=== PATIENT | female | born 1965 | race Caucasian/White ===

== ENCOUNTER 2024-03-28 06:04 | Emergency (ER) | payer MEDICARE, OTHER, SELFPAY ==
[2024-03-28 06:13] VITALS: BP 122/77
[2024-03-28 06:21] VITALS: BMI 26.5
--- NOTE | 2024-03-28 07:29 | ED.GENMED ---
History of Present Illness
General
Chief Complaint: Musculo-Skeletal Complaint
Source: patient
Exam Limitations: none
Time Seen by Provider: 03/28/24 07:01
Nursing documentation reviewed up to this point in time: agreed with
History of Present Illness
History of Present Illness:
58-year-old female presenting to the emergency department today with concerns of right-sided ankle discomfort. Claims that she kicked the chair in the left ankle stuck in the chair last night difficulty walking this morning as well as swelling and
discomfort. Denies additional injuries. No numbness or weakness.
Past History
Past History
ED Past Medical History: Other (Bipolar)
ED Past Surgical History: Other (noncontributory)
Social History
Tobacco: Smoker
Alcohol: None
Drug: None
Personal: Other (Noncontributory)
Living: with family
Employment: Not employed
Family History
Family History: Other (Noncontributory)
Review of Systems
Review of Systems
Allergies reviewed?: Yes
All Other Systems: ROS reviewed and negative except as documented in HPI and ROS
Phy Exam
Physical Exam
Physical Exam:
GENERAL: Alert , in no apparent distress
EYE: pupils equal and reactive
NECK: Supple, no significant adenopathy.
ENT: o/p clr, mmm.
CARDIAC: Regular rate and rhythm .
LUNGS: Clear breath sounds bilaterally, no acute respiratory distress, no wheezes/rales/rhonchi
ABDOMEN: Soft, without focal tenderness, no r/g, no cvat
NEUROLOGICAL: Alert and oriented, no focal neuro deficits
SKIN: Warm and dry, skin intact.
MUSCULOSKELETAL: Mild swelling and tenderness palpation to the right ankle mainly to the lateral and medial malleolus mainly to the area anterior to both. No tenderness throughout the foot midfoot forefoot or tib-fib., well perfused.
PSYCH: Normal and appropriate interaction.
Course
Orders/Labs/Results
Orders:
Orders
03/28/24 06:10
Ankle, Right 3 view CR [CR Ankle - Right Min 3 Views *] Urgent
Comment:
Reason For Exam: injury and pain
03/28/24 07:27
boot [Ortho Boot Right- Treatment] ONCE
Short or tall?: Tall
Vital Signs
Initial and Last Documented VS:
Initial Vital Signs
Temp Pulse Resp BP Pulse Ox
98.5 F 79 16 122/77 100
03/28/24 06:13 03/28/24 06:13 03/28/24 06:13 03/28/24 06:13 03/28/24 06:13
Last Documented Vital Signs
Temp Pulse Resp BP Pulse Ox
98.5 F 79 16 122/77 100
03/28/24 06:13 03/28/24 06:13 03/28/24 06:13 03/28/24 06:13 03/28/24 06:13
MDM/Problems Addressed
MDM/Problems Addressed:
58-year-old female presenting to the emergency department today with concerns of right-sided ankle discomfort after twisting and hitting her ankle in a chair yesterday. Difficulty walking today. Neuro vastly intact tenderness mainly to the
anterior aspect of the lateral malleolus. X-ray without evidence of fracture patient with likely sprain plan for symptomatic treatment return precautions given.
*Critical Care Note
Total Time (30-74mins, 75-104mins- exclusive of procedures): Not Applicable
ED Attending Note
-
Portions of this chart may have been created with voice recognition software.� Occasional wrong word or��sound alike� substitutions may have occurred due to the inherent limitations of voice recognition software.
Discharge Plan
Departure
Patient Disposition: Home (Routine Discharge)
Date of Disposition: 03/28/24
Time of Disposition: 07:39
Patient with high blood pressure during this ER visit?: No
Condition: Good
Covid-19: Not Applicable
Discharge Problem:
Ankle sprain
Instructions: Ankle Sprain ED
Prescriptions:
No Action
Ativan
1 tab PO TID
Patient Comments:
'take 1 tab three times a day'
carbamazepine [Tegretol] 200 MG tablet
400 mg PO DAILY
fluticasone propionate 1 SPRAY spray,suspension
2 spray intranasal DAILY
Celexa
1 tab PO DAILY
diphenhydramine-acetaminophen 1 EACH tablet
2 - 3 tab PO HS PRN (Reason: SLEEP)
doxycycline hyclate 100 MG capsule
100 mg PO Q12 Qty: 20 0RF
ytnrhrcl-xtuurkiceIp-msumlmouW 15 GM ointment
15 gm TP BID Qty: 0 0RF
clindamycin HCl 300 MG capsule
300 mg PO TID Qty: 30 0RF
phenazopyridine 100 MG tablet
100 mg PO TIDPRN PRN (Reason: pain) Qty: 10 0RF
Referrals:
Jon Boles MD [Active] - Follow up in 5-7 days
Activity Restrictions/Additional Instructions:
You came to the emergency department today for concerns of an ankle sprain. Please follow-up closely with Ortho as needed and increase weightbearing as tolerated. Return to the emergency department for any worsening, new or concerning symptoms.
Interventions
Interventions:
*Risk Screen - Suicide Last Done: 03/28/24 06:20
*General Assessment Last Done: 03/28/24 06:18
*Neglect/Abuse Screening Last Done: 03/28/24 06:22
ED- Fall Risk Assessment Last Done: 03/28/24 06:17
*ED COVID-19 Vaccine History Last Done: 03/28/24 06:17
ED-Musculoskeletal Assessment Last Done: 03/28/24 06:15
Discharge Date and Time
Print Language: [place]
== END 2024-03-28 07:57 | disposition home or self-care (01) ==
LOC: EMR 06:04
PROVIDERS: EMERGENCY PHYSICIAN Emergency Medicine; FAMILY PHYSICIAN Family Medicine
DX: S93.401A Sprain of unspecified ligament of right ankle, initial encounter (principal); W22.09XA Striking against other stationary object, initial encounter; F17.200 Nicotine dependence, unspecified, uncomplicated
CPT/HCPCS: 99283; 73610

== ENCOUNTER 2024-05-25 18:23 | Emergency (ER) | payer OTHER, SELFPAY ==
[2024-05-25 18:35] VITALS: BP 157/88
[2024-05-25 18:55] LABS: % Basophils 0.4 % (0-2); % Eosinophils 1.4 % (0-6); % Lymphocytes 43.2 % (20.5-51.1); % Monocytes 8.6 % (1.7-9.3); % Neutrophils 46.4 % (42.2-75.2); Absolute Eosinophils 0.1 10^3/uL (0-0.7); Absolute Lymphocytes 2.2 10^3/uL (1.2-3.4); Absolute Monocytes 0.4 10^3/uL (0.1-0.6); Absolute Neutrophils 2.4 10^3/uL (1.4-6.5); Hematocrit 38.8 % (37.0-47.0); Hemoglobin 12.9 g/dL (12.0-16.0); Mean Corp Hgb Conc. 33.2 g/dL (33.0-37.0); Mean Corpuscular Hgb 30.7 pg (27.0-31.0); Mean Corpuscular Volume 92.4 fL (81.0-99.0); Mean Platelet Volume 8.8 fL (7.4-10.4); Nucleated Red Blood Cells % 0 %; Platelet Count 287 10^3/uL (130-400); Red Cell Dist. Width 12.1 % (11.5-14.5); White Blood Cell Count 5.1 10^3/uL (4.8-10.8)
[2024-05-25 18:57] LABS: Urine Albumin Negative (Neg - Trace); Urine Bilirubin Negative (Negative); Urine Character Clear (Clear); Urine Color Yellow; Urine Glucose Negative (Negative); Urine Ketone Negative (Negative); Urine Leukocyte Negative (Negative); Urine Nitrite Negative (Negative); Urine Occult Blood Negative (Negative); Urine Urobilinogen Negative (Neg - 1+)
[2024-05-25 19:10] LABS: ALT (SGPT) 29 U/L (0-35); AST (SGOT) 35 U/L (14-36); Albumin 4.7 g/dl (3.5-5.0); Alkaline Phosphatase 116 U/L (38-126); Blood Urea Nitrogen 25 mg/dl (7-17); Calcium 10.1 mg/dl (8.4-10.2); Carbon Dioxide 30 mmol/L (22-30); Chloride 102 mmol/L (98-107); Glucose 95 mg/dl (70-99); Potassium 4.2 mmol/L (3.5-5.1); Sodium 139 mmol/L (135-145); Total Bilirubin 0.1 mg/dl (0.2-1.3); Total Protein 7.5 g/dl (6.3-8.2); eGFR > 60.00
[2024-05-25 21:20] VITALS: BP 131/89; BMI 27.4
--- NOTE | 2024-05-25 22:23 | ED.GENMED ---
History of Present Illness
General
Chief Complaint: Flank Pain
Source: patient
Exam Limitations: none
Time Seen by Provider: 05/25/24 21:45
History of Present Illness
History of Present Illness:
This is a 58 year old female that comes in with c/o feeling like she has a UTI and right back pain. States that 3 week ago she though she had a UTI and treated herself with AZO. States that know she has right back pain and is concerned that she has
a kidney infection. States that she thought mabybe the urinary tract infection moved up. Denies any fever, chills, chest pain, SOB, abd pain, nausea, vomiting, diarrhea, headache, dizziness, urinary burning.
Past History
Past History
ED Past Medical History: HTN, Psychiatric (Bipolar, OCD) and Other (Headache, Dizzy, )
ED Past Surgical History: Orthopedic (Right and left knee replacement, Left shoulder surgery, ), Urological (Piece of right kidney removed. ) and Other (noncontributory)
Social History
Tobacco: Former smoker
Alcohol: Occasional
Drug: None
Personal: Single (Noncontributory)
Living: with family
Employment: Not employed
Family History
Family History: Other (Noncontributory)
Review of Systems
Review of Systems
All Other Systems: ROS reviewed and negative except as documented in HPI and ROS
Constitutional: Reports no symptoms; Denies fever or chills
EENT: Reports no symptoms
Respiratory: Reports no symptoms; Denies cough or trouble breathing
Cardiac: Reports no symptoms; Denies chest pain
ABD/GI: Reports no symptoms; Denies abdominal pain, nausea, vomiting or diarrhea
: Reports no symptoms; Denies dysuria, frequency or urgency
Musculoskeletal: Reports back pain (Right low back pain)
Skin: Reports no symptoms
Neurological: Reports no symptoms; Denies dizzy or headache
Psychiatric: Reports no symptoms
Phy Exam
General Physical Exam
General Presentation: no apparent distress
General age: appears stated age
General Skin: warm and dry
General Habitus: other (Appears older then stated age)
General Mental: alert
General Hydration: appears well hydrated
ENT Exam
ENT Exam: TM's normal, pharynx normal and neck supple
Eye Exam
Eye Exam: EOMI
Cardiovascular Exam
Cardiovascular Exam: regular rate/rhythm, no edema, no murmur and normal peripheral pulses
Pulmonary Exam
Pulmonary Exam: lungs clear, no respiratory distress, no rales, chest non tender, no crackles, no rhonchi, no wheezing and no cough
Gastrointestinal Exam
Gastrointestinal Exam: normal bowel sounds, non tender, soft, no organomegaly, no pulsatile mass, non distended and no cva tenderness
Musculoskeletal Exam
Musculoskeletal Exam: full ROM and no edema
Skin Exam
Skin Exam: normal color, warm/dry, no rash and no petechia
Psychiatric Exam
Psychiatric Exam: normal mood/affect
Course
Orders/Labs/Results
Orders:
Orders
05/25/24 18:48
CMP [Comprehensive Metabolic Panel] Urgent
Complete Blood Count/With Diff Urgent
Urinalysis Reflex To Culture Urgent
Date Specimen was Collected: 05/25/24
Time Specimen was Collected: 18:27
05/25/24 22:23
CT Abd/pel Without Iv Or Oral Urgent
Comment:
Reason For Exam: Right back pain/flank pain
Abnormal Lab Results
05/25/24
18:48
BUN 25 H mg/dl
(7-17)
Total Bilirubin 0.1 L mg/dl
(0.2-1.3)
05/25/24 18:48
05/25/24 18:48
Dehydration. Total nj slightly low. Urine negative for blood or infection
Vital Signs
Initial and Last Documented VS:
Initial Vital Signs
Temp Pulse Resp BP Pulse Ox
98.3 F 80 20 157/88 100
05/25/24 18:35 05/25/24 18:35 05/25/24 18:35 05/25/24 18:35 05/25/24 18:35
Last Documented Vital Signs
Temp Pulse Resp BP Pulse Ox
98.3 F 84 15 131/89 99
05/25/24 18:35 05/25/24 21:20 05/25/24 21:20 05/25/24 21:20 05/25/24 21:20
MDM/Problems Addressed
Differential Diagnosis Includes:
Renal calculus, Kidney Cancer
MDM/Problems Addressed:
This is a 58 year old female that come sin with c/o right side back pain. States that she has a UTI 3 weeks ago and took AZO. States that her urine still smelled and she thought that it moved up into her kidney as she has right back pain.
Will check labs, Urine and get CT scan
Back into see patient. Explained that there are no renal calculus but some constipation. There is degenerative change in the lumbar spine. Patient can use TYlenol as needed for pain. Follow up with the family doctor. return with any concerns.
Chronic conditions affecting care:
NA
Acute Exacerbation and/or Progression of Chronic Illness:
NA
*Radiology
Radiology exam reviewed: radiology read reviewed (CT-NO renal or ureteral calculus. Slight Distention of an extra renal pelvis, bilaterally. No hydronephrosis or perinephric stranding. NO evidence of obstructive uropathy. Urinary bladder is
underdistended. NO bladder calculus. No acute inflammatory reaction within the abdomen or pelvis. .) and other (CT cont- Constipation. NO bowel obstruction. Degenerative disc diseaes in lower thoracic spine and lumbar spine. Lumbar facet arthrosis.
No acute compression deformity. Minor chronic appearing diminished stature of the L1 superior endplate. )
*Pulse Oximetry
Patient hypoxic: no
*EKG
Interpreted by ED Provider?: NA
Rate: EKG- N/A
*Sampler First Interpretation
Rate: Sampler First- N/A
*Critical Care Note
Total Time (30-74mins, 75-104mins- exclusive of procedures): Not Applicable
ED Attending Note
-
Portions of this chart may have been created with voice recognition software.� Occasional wrong word or��sound alike� substitutions may have occurred due to the inherent limitations of voice recognition software.
Discharge Plan
Departure
Patient Disposition: Home (Routine Discharge)
Date of Disposition: 05/26/24
Time of Disposition: 00:12
Patient with high blood pressure during this ER visit?: Yes
Condition: Good
Covid-19: Not Applicable
Discharge Problem:
Low back pain
Instructions: Low back pain - ED discharge instructions, BLOOD PRESSURE
Prescriptions:
No Action
Ativan
1 tab PO TID
Patient Comments:
'take 1 tab three times a day'
carbamazepine [Tegretol] 200 MG tablet
400 mg PO DAILY
fluticasone propionate 1 SPRAY spray,suspension
2 spray intranasal DAILY
Celexa
1 tab PO DAILY
diphenhydramine-acetaminophen 1 EACH tablet
2 - 3 tab PO HS PRN (Reason: SLEEP)
doxycycline hyclate 100 MG capsule
100 mg PO Q12 Qty: 20 0RF
nxitzbuj-hwtpjndgsAl-zmlpqylbT 15 GM ointment
15 gm TP BID Qty: 0 0RF
clindamycin HCl 300 MG capsule
300 mg PO TID Qty: 30 0RF
phenazopyridine 100 MG tablet
100 mg PO TIDPRN PRN (Reason: pain) Qty: 10 0RF
Referrals:
Jaylon Torres MD [Family Provider] - Call in 1-3 days for appt
Activity Restrictions/Additional Instructions:
As discussed, your blood work shows that you are dehydrated. Please increase your water intake to 8-8oz glasses daily. Your CT is negative for any renal calculus and your urine is negative for infection. You do have degenerative changes in the
lumbar spine. Please follow up with the family doctor for recheck. IF YOU HAVE ANY OTHER CONCERNS PLEASE RETURN TO THE EMERGENCY ROOM.
Interventions
Interventions:
*Risk Screen - Suicide Last Done: 05/25/24 18:35
*General Assessment Last Done: 05/25/24 18:35
II-Jfgvmj-Tepiznbnla Assessment Last Done: 05/25/24 21:20
ED-Female Genitourinary Assessment Last Done: 05/25/24 21:20
Discharge Date and Time
Print Language: [place]
== END 2024-05-26 00:46 | disposition home or self-care (01) ==
LOC: EMR 18:23
PROVIDERS: EMERGENCY PHYSICIAN Student in an Organized Health Care Education/Training Program; FAMILY PHYSICIAN Family Medicine
DX: M54.50 Low back pain, unspecified (principal); K59.00 Constipation, unspecified; I10 Essential (primary) hypertension; M51.34 Other intervertebral disc degeneration, thoracic region; M47.816 Spondylosis without myelopathy or radiculopathy, lumbar region; F31.9 Bipolar disorder, unspecified; F42.9 Obsessive-compulsive disorder, unspecified; Z96.653 Presence of artificial knee joint, bilateral; Z87.440 Personal history of urinary (tract) infections; Z87.891 Personal history of nicotine dependence; Z88.1 Allergy status to other antibiotic agents
CPT/HCPCS: 99284; 74176; 80053; 81003; 85025

== ENCOUNTER → 2024-07-16 08:17 | Outpatient (REF) | payer OTHER, SELFPAY | LOC: MRI 3T 08:17 | PROVIDERS: ATTENDING PHYSICIAN Family Medicine | DX: M25.512 Pain in left shoulder (principal) | CPT/HCPCS: 73221 ==

== ENCOUNTER → 2024-08-29 13:26 | Outpatient (REF) | payer OTHER, SELFPAY ==
[2024-08-29 14:28] LABS: % Basophils 0.4 % (0-2); % Eosinophils 1.8 % (0-6); % Immature Granulocytes 0.2 % (0-0.5); % Lymphocytes 34.1 % (20.5-51.1); % Monocytes 6.6 % (1.7-9.3); % Neutrophils 56.9 % (42.2-75.2); Absolute Eosinophils 0.1 10^3/uL (0-0.7); Absolute Lymphocytes 1.9 10^3/uL (1.2-3.4); Absolute Monocytes 0.4 10^3/uL (0.1-0.6); Absolute Neutrophils 3.1 10^3/uL (1.4-6.5); Hematocrit 39.6 % (37.0-47.0); Hemoglobin 12.8 g/dL (12.0-16.0); Mean Corp Hgb Conc. 32.3 g/dL (33.0-37.0); Mean Corpuscular Hgb 30.2 pg (27.0-31.0); Mean Corpuscular Volume 93.4 fL (81.0-99.0); Mean Platelet Volume 9.5 fL (7.4-10.4); Nucleated Red Blood Cells % 0 %; Platelet Count 299 10^3/uL (130-400); Red Blood Cell Count 4.24 10^6/uL (4.20-5.40); Red Cell Dist. Width 12.8 % (11.5-14.5); White Blood Cell Count 5.5 10^3/uL (4.8-10.8)
[2024-08-29 14:45] LABS: Blood Urea Nitrogen 28 mg/dl (7-17); Calcium 10.2 mg/dl (8.4-10.2); Carbon Dioxide 29 mmol/L (22-30); Chloride 105 mmol/L (98-107); Glucose 130 mg/dl (70-99); Potassium 4.4 mmol/L (3.5-5.1); Sodium 142 mmol/L (135-145); eGFR > 60.00
== END ==
LOC: REG 13:26
PROVIDERS: ATTENDING PHYSICIAN Specialist
DX: Z01.818 Encounter for other preprocedural examination (principal)
CPT/HCPCS: 36415; 80048; 85025; 93005